=== PATIENT | female | born 1950 | race Caucasian/White ===

== ENCOUNTER 2022-11-23 12:33 | Emergency (ER) | payer MEDICARE ==
[~2022-11-23] VITALS: Ht 167.6 cm; Wt 111.1 kg
[2022-11-23 12:40] VITALS: O2SAT 98
[2022-11-23 14:01] LABS: COLOR,URINE YELLOW (YELLOW)
[2022-11-23 14:02] LABS: CLARITY,URINE CLEAR (CLEAR); KETONES,URINE NEGATIVE (NEGATIVE); LEUKOCYTE ESTERASE ,URINE NEGATIVE (NEGATIVE); NITRITE,URINE POSITIVE (NEGATIVE); PROTEIN,URINE DIPSTICK NEGATIVE (NEGATIVE); URINE UROBILINOGEN 1 mg/dL (0.2 - 1)
[2022-11-23 14:03] LABS: BACTERIA,URINE MANY /HPF; EPITHELIAL CELLS,URINE FEW /LPF; RBC,URINE 0-5 /HPF (0-5)
[2022-11-23] MEDS ORDERED: CEFUROXIME250 MG PO (14:11)
== END 2022-11-23 14:43 | disposition home or self-care (01) ==
LOC: ER 12:38
DX: R30.0 Dysuria (principal); N39.0 Urinary tract infection, site not specified
CPT/HCPCS: 81001; 87086; 87186; 99284